=== PATIENT | female | born 1965 ===

== ENCOUNTER 2017-11-19 08:45 | Day surgery (SDC) | payer MEDICAID ==
[2017-11-13 08:32] VITALS: BMI 25.7
[2017-11-19] MEDS ORDERED: Propofol 10 mg/ml Inj (20 ML) ONE (10:25)
[2017-11-19] MEDS ORDERED: Midazolam 2 MG/2 ML VIAL ONE (10:25)
[2017-11-19] MEDS ORDERED: ceFAZolin 1 gm in NS 0 GM/0 ML BAG IVPB ONE (10:27)
[2017-11-19] MEDS ORDERED: Bupivacaine HCl 0.25% PF (30 ml) Inj ONE (10:28)
[2017-11-19] MEDS ORDERED: Lidocaine/Epinephrine 1% 1:100000 10 ML IJ ONE (10:28)
[2017-11-19] MEDS ORDERED: Clindamycin 600mg/50ml NS 600 MG/50 ML BAG IVPB ONE (10:32)
--- NOTE | 2017-11-19 11:21 | PCM.SURG1 ---
Surgeon's Initial Post Op Note - Surgeon's Notes Surgeon: Selena Levi Md Courtroom Reporter: SOURAV Obrien Type of Anesthesia: General LMA Pre-Operative Diagnosis: Lipoma of right upper thigh. Lesion of right forearm lesion Operative Findings: Lipoma of right upper thigh 4x3 cm. Lesion of right forearm lesion 1x1 cm Post-Operative Diagnosis: Lipoma of right upper thigh. Lesion of right forearm lesion Operation Performed: Excision of Lipoma of right upper thigh 4x3 cm. Excision of Lesion of right forearm lesion 1x1 cm Specimen/Specimens Removed: Lipoma of right upper thigh. Lesion of right forearm lesion Estimated Blood Loss: EBL {In ML}: 5 Blood Products Given: N/A Drains Used: No Drains Post-Op Condition: Good Date of Surgery/Procedure: 11/19/17 Time of Surgery/Procedure: 11:21
[2017-11-19] MEDS ORDERED: HYDROmorphone 0.5 mg/0.5 ml ISec IVP PRN (11:25)
[2017-11-19 12:43] VITALS: O2SAT 100
[2017-11-19 13:29] VITALS: TEMP 97.8
[2017-11-19 17:08] VITALS: BP 99/66; PULSE 80; RESP 20
--- NOTE | 2017-11-22 07:34 | OP ---
PROCEDURE DATE: 11/19/2017 PREOPERATIVE DIAGNOSES: 1. Lipoma of the right upper thigh. 2. Right forearm lesion. POSTOPERATIVE DIAGNOSES: 1. Lipoma of the right upper thigh, 4 x 3 cm size. 2. Right forearm lesion, 1 x 1 cm size. PROCEDURE: 1. Excision of the lipoma of the right upper thigh. 2. Layered closure of the wound, 4 x 2 cm size. 3. Excision of the right forearm lesion, 1 x 1 cm size. TYPE OF ANESTHESIA: General anesthesia with LMA and with local. ESTIMATED BLOOD LOSS: Around 10 mL for both procedure. DRAINS: None. PATHOLOGY: 1. Lipoma of the right upper thigh was sent for the pathology. 2. Right forearm lesion was sent for the pathology. COMPLICATIONS: None. INTRAOPERATIVE FINDINGS: The patient had approximately 4 x 3 cm lipoma of the right upper thigh and 1 x 1 cm of the right forearm. DESCRIPTION OF PROCEDURE: On intraoperative steps, this is 52-year-old female who was diagnosed with lipoma of the right upper thigh and right forearm lesion. The patient was consented for the excision of the lipoma of the right thigh and right forearm lesion, and brought to the OR, placed supine on the operating table. After induction of anesthesia, the right thigh and right forearm was prepped and draped in the usual sterile fashion. Local anesthesia was injected. Elliptical 4 x 2 cm incision was made after incising skin, subcutaneous tissue, and upper and lower flap was created. The medial and lateral dissection was done, and the large lipoma was completely excised and it was sent off the table for pathology. The surrounding lipomatous changes in the fat was also excised and was sent off the table for the pathology. Hemostasis was achieved. The wound was closed in a multiple layer, deep subcu with 2-0 Vicryl, superficial subcu with 3-0 Vicryl, skin with 4-0 Monocryl, and dry sterile dressing was applied and now the elliptical incision was made surrounding the right forearm incision and 1 x 1 cm lesion was completely excised. It was sent off the table for the pathology. Wound was irrigated and wound was closed in one layer with 4-0 Monocryl and dry sterile dressing was applied. The patient tolerated the procedure well. Count of the instruments and gauze was correct. There was no apparent complication. The patient was extubated in OR, sent to the postanesthesia care unit in stable condition. Norberto Levi MD
== END 2017-11-19 17:10 | disposition home or self-care (01) ==
LOC: C.OPSURG 08:45 → C.SDS 08:45
PROVIDERS: ATTEND Surgery Surgical Critical Care
DX: D17.23 Benign lipomatous neoplasm of skin and subcutaneous tissue of right leg (principal); D17.21 Benign lipomatous neoplasm of skin and subcutaneous tissue of right arm
CPT/HCPCS: 11401; 11403; 12031; 82948; 88304; J2250; J2704; J3010

== ENCOUNTER 2018-08-28 16:02 | Outpatient (CLI) | payer MEDICAID | END 2018-08-28 16:03 | disposition home or self-care (01) | LOC: C.MAMMO 16:02 | DX: Z12.31 Encounter for screening mammogram for malignant neoplasm of breast (principal) ==